=== PATIENT | male | born 1945 | race Caucasian/White ===

== ENCOUNTER 2018-09-09 11:27 | Outpatient (CLI) | payer OTHER | END 2018-09-09 17:00 | disposition home or self-care (01) | LOC: RAD 11:27 | DX: M25.561 Pain in right knee (principal); M25.562 Pain in left knee; M25.551 Pain in right hip ==

== ENCOUNTER 2020-02-02 09:28 | Outpatient (CLI) | payer OTHER | END 2020-02-02 09:39 | disposition home or self-care (01) | LOC: RAD 09:28 → MAMO-SONO 10:30 | PROVIDERS: ATTEND Urology | DX: Q61.02 Congenital multiple renal cysts (principal); N20.0 Calculus of kidney ==

== ENCOUNTER 2022-02-06 13:46 | Outpatient (CLI) | payer OTHER | END 2022-02-06 13:52 | disposition home or self-care (01) | LOC: RAD 13:46 | PROVIDERS: ATTEND Orthopaedic Surgery | DX: M25.551 Pain in right hip (principal); M25.562 Pain in left knee ==

== ENCOUNTER 2022-02-19 09:40 | Outpatient (CLI) | payer OTHER | END 2022-02-19 09:41 | disposition home or self-care (01) | LOC: NUCLEAR 09:40 | PROVIDERS: ATTEND Orthopaedic Surgery | DX: I87.2 Venous insufficiency (chronic) (peripheral) (principal); I80.12 Phlebitis and thrombophlebitis of left femoral vein ==

== ENCOUNTER 2022-02-19 10:30 | Outpatient (CLI) | payer OTHER | END 2022-02-19 10:34 | disposition home or self-care (01) | LOC: RAD 10:30 | PROVIDERS: ATTEND Orthopaedic Surgery | DX: M79.652 Pain in left thigh (principal); M79.605 Pain in left leg; Z76.89 Persons encountering health services in other specified circumstances ==

== ENCOUNTER 2022-04-21 08:04 | Outpatient (CLI) | payer OTHER ==
[~2022-04-21] VITALS: Ht 172.7 cm; Wt 106.6 kg
== END 2022-04-21 08:05 | disposition home or self-care (01) ==
LOC: EDBD 08:04 → LAB 08:04
PROVIDERS: ATTEND Orthopaedic Surgery
DX: D64.89 Other specified anemias (principal); E88.89 Other specified metabolic disorders; D68.8 Other specified coagulation defects; N39.0 Urinary tract infection, site not specified; A49.02 Methicillin resistant Staphylococcus aureus infection, unspecified site; E11.9 Type 2 diabetes mellitus without complications; I49.9 Cardiac arrhythmia, unspecified; I10 Essential (primary) hypertension; Z76.89 Persons encountering health services in other specified circumstances

== ENCOUNTER 2022-10-30 11:31 | Outpatient (CLI) | payer OTHER | END 2022-10-30 11:43 | disposition home or self-care (01) | LOC: RAD 11:31 | PROVIDERS: ATTEND Orthopaedic Surgery | DX: M25.551 Pain in right hip (principal); M25.552 Pain in left hip; M17.11 Unilateral primary osteoarthritis, right knee ==

== ENCOUNTER 2022-12-03 07:43 | Outpatient (CLI) | payer OTHER | END 2022-12-03 07:50 | disposition home or self-care (01) | LOC: SONOGRAMA 07:43 | PROVIDERS: ATTEND Orthopaedic Surgery | DX: M76.01 Gluteal tendinitis, right hip (principal) ==

== ENCOUNTER 2023-01-07 07:21 | Outpatient (CLI) | payer OTHER | END 2023-01-07 07:22 | disposition home or self-care (01) | LOC: NUCLEAR 07:21 | PROVIDERS: ATTEND Orthopaedic Surgery | DX: E21.0 Primary hyperparathyroidism (principal) | CPT/HCPCS: 78072; A9500 ==

== ENCOUNTER 2023-03-23 11:00 | Outpatient (CLI) | payer OTHER | END 2023-03-23 11:02 | disposition home or self-care (01) | LOC: SONOGRAMA 11:00 | PROVIDERS: ATTEND Pathology Anatomic Pathology & Clinical Pathology | DX: D34 Benign neoplasm of thyroid gland (principal); E07.89 Other specified disorders of thyroid; E04.2 Nontoxic multinodular goiter ==

== ENCOUNTER 2024-03-11 09:24 | Outpatient (CLI) | payer OTHER ==
[2024-03-11 11:26] LABS: ALBUMIN 3.5 gm/dL (3.4-5.0); BILIRUBIN TOTAL 0.52 mg/dL (0.3-1.2); CALCIUM 10.9 mg/dL (8.5-10.1); CREATININE SERUM 1.24 mg/dL (0.70-1.30); GFR 56.53; GLOBULINA 3.4 G/DL (2.4-3.5); MAGNESIUM 2.2 mg/dL (1.8-2.4); POTASSIUM 4.52 mEq/L (3.5-5.1); TOTAL PROTEIN 6.9 gm/dL (6.4-8.2)
[2024-03-14 12:04] LABS: CALCIUM IONIZED 5.9 mg/dL (4.5-5.6)
== END 2024-03-11 09:25 | disposition home or self-care (01) ==
LOC: LAB 09:24
PROVIDERS: ATTEND Orthopaedic Surgery
DX: E55.9 Vitamin D deficiency, unspecified (principal); M85.9 Disorder of bone density and structure, unspecified; E56.1 Deficiency of vitamin K; E21.3 Hyperparathyroidism, unspecified; E88.89 Other specified metabolic disorders; M81.8 Other osteoporosis without current pathological fracture

== ENCOUNTER 2024-03-11 10:34 | Outpatient (CLI) | payer OTHER | END 2024-03-11 10:39 | disposition home or self-care (01) | LOC: RAD 10:34 | PROVIDERS: ATTEND Orthopaedic Surgery | DX: M25.551 Pain in right hip (principal); M25.552 Pain in left hip ==

== ENCOUNTER 2024-03-22 08:52 | Outpatient (CLI) | payer OTHER | END 2024-03-22 08:55 | disposition home or self-care (01) | LOC: TOM 08:52 | PROVIDERS: ATTEND Orthopaedic Surgery | DX: M21.751 Unequal limb length (acquired), right femur (principal) ==